=== PATIENT | male | born 1945 | race Caucasian/White ===

== ENCOUNTER → 2019-01-03 | Outpatient (CLI) | payer MEDICARE, BC ==
[2019-01-03 12:08] LABS: BASOPHILS # (AUTO) 0.06 x10^3/uL (0-0.1); BASOPHILS % (AUTO) 1 % (0-1); EOSINOPHILS # (AUTO) 0.05 x10^3/uL (0-0.4); EOSINOPHILS % (AUTO) 1 % (1-7); LYMPHOCYTES # (AUTO) 1.13 x10^3/uL (1-3.4); LYMPHOCYTES % (AUTO) 16 % (22-44); MD NO; MEAN CORPUSCULAR HEMOGLOBIN 27.1 pg (27.5-34.5); MEAN CORPUSCULAR HGB CONC 31.1 g/dL (33.2-36.2); MEAN CORPUSCULAR VOLUME 87.1 fL (81-97); MEAN PLATELET VOLUME 9.6 fL (7.4-10.4); MONOCYTES # (AUTO) 0.69 x10^3/uL (0.2-0.8); MONOCYTES % (AUTO) 10 % (2-9); NEUTROPHILS # (AUTO) 5.03 x10^3/uL (1.8-6.8); NEUTROPHILS % (AUTO) 72 % (42-75); PLATELET COUNT 378 x10^3/uL (130-400); RED BLOOD COUNT 3.84 x10^6/uL (4.38-5.82); RED CELL DISTRIBUTION WIDTH 17.4 % (9.4-14.8)
[2019-01-03 12:28] LABS: ANION GAP 6 mmol/L (5-15); CALCIUM 8.5 mg/dL (8.5-10.1); CHLORIDE 112 mmol/L (98-107)
== END | disposition home or self-care (01) ==
LOC: CFH 09:05
PROVIDERS: ATTEND Internal Medicine Cardiovascular Disease
DX: J98.4 Other disorders of lung (principal); I48.91 Unspecified atrial fibrillation
CPT/HCPCS: 36415; 71046; 80048; 85025